=== PATIENT | female | born 1995 | race Caucasian/White ===

== ENCOUNTER 2020-05-25 20:17 | Emergency (ER) | payer OTHER, SELFPAY ==
[~2020-05-25] VITALS: Ht 162.6 cm; Wt 54.4 kg
[2020-05-25 20:48] VITALS: BP 109/67
--- NOTE | 2020-05-25 20:55 | NUR ---
COVID SWAB COLLECTED.
--- NOTE | 2020-05-25 21:09 | NUR ---
ASSESSED, TREATED, AND D/C MY [place] [facility]. NO NURSING INTERVENTION NEEDED.
[2020-05-25 21:10] VITALS: BP 109/67
--- NOTE | 2020-05-25 21:13 | NUR ---
Patient discharged with v/s stable. Written and verbal after care instructions given and explained. Patient verbalized understanding. Ambulatory with steady gait. All questions addressed prior to discharge. Advised to follow up with PMD.
== END 2020-05-25 21:13 | disposition home or self-care (01) ==
LOC: MED 20:17 → EEVIPCON 20:17 → MED 21:13
DX: Z03.818 Encounter for observation for suspected exposure to other biological agents ruled out (principal)
CPT/HCPCS: 99283; U0003